=== PATIENT | female | born 1950 | race Caucasian/White ===

== ENCOUNTER → 2020-11-18 | Outpatient (CLI) | payer OTHER, MEDICARE | END | disposition home or self-care (01) | LOC: LABWHC1 10:02 | PROVIDERS: ATTEND Orthopaedic Surgery | DX: Z01.812 Encounter for preprocedural laboratory examination (principal) | CPT/HCPCS: 87070 ==

== ENCOUNTER 2020-11-29 11:21 | Day surgery (SDC) | payer MEDICARE, OTHER ==
[2020-11-24 13:07] VITALS: BMI 32.4
--- NOTE | 2020-11-28 13:09 | HP ---
HISTORY AND PHYSICAL REASON FOR ADMISSION: Surgery scheduled for 11/29/2020. Nasra Joseph is a 70-year-old patient seen with symptomatic left knee osteoarthritis. After treatment options were discussed, she elected to proceed with left total knee arthroplasty. Consent obtained. Medical clearance was provided by Dr. Piter Rosales. PAST MEDICAL HISTORY: Yio-nhiubxe-swzgimmic diabetes. SURGICAL HISTORY: Hysterectomy, total knee arthroplasty. MEDICATIONS: Aspirin, Inderal, metformin, multivitamin. ALLERGIES: NARCOTICS, PENICILLIN. SOCIAL HISTORY: Denies tobacco use. PHYSICAL EXAMINATION: Evaluation of the left knee: Range of motion is -4 to 110. Tenderness along the lateral compartment, lateral joint line area, crepitus, lateral patellofemoral compartment, severe valgus deformity. Distal neurovascular exam intact. RADIOGRAPHS: Left knee radiographs reveal severe osteoarthritic changes involving the lateral compartment with a significant valgus deformity. IMPRESSION: 1. Left knee osteoarthritis. 2. Hypertension. 3. Zmb-[id number]-ssguemwzx diabetes. PLAN: Left total knee arthroplasty. Surgery scheduled for 11/29/2020. MMODL / IJN: [id number] /
[~2020-11-29 11:21] MED LIST: ACETAMINOPHEN TAB 500 MG TAB PO PRN; HYDROmorphone 0.5 MG/0.5 ML SYRINGE IVP PRN; LIDOCAINE 1% (10MG/ML) FOR IV START INTRADERMA PRN; MELOXICAM 7.5 MG TAB PO PRN; ONDANSETRON 4 MG/2 ML VIAL IVP ONE; ROPIVACAINE/EPI/CLONIDINE/KET 50 ML SYRINGE MISCELLANE PRN; TRANEXAMIC ACID 1,000 MG in SODIUM CHLORIDE 0.9% 100 ML IVPB PRN
[2020-11-29] MEDS ORDERED: DEXAMETHASONE SOD PHOSPHATE 4 MG/ML 1 ML VIAL IV ONE (12:05)
[2020-11-29] MEDS: LACTATED RINGERS 1,000 ML IV SCH ×2 (12:05→15:48)
[2020-11-29 12:09] LABS: Glucose,Whole Blood 118 mg/dL (75-99)
[2020-11-29] MEDS ORDERED: MIDAZOLAM 2 MG/2 ML VIAL IV ONE (12:13)
[2020-11-29] MEDS ORDERED: ROPIVACAINE 0.2%-NS ON-Q PUMP 1,090 MG, EMPTY PAIN BALL 1 EACH MISCELLANE PRN (12:34)
--- NOTE | 2020-11-29 12:35 | P.ANPRN ---
Procedure Note - Anesthesia - Nerve Block Performed Left Adductor Canal Infusion Time Out Performed: Yes (1212) Date of Procedure: 11/29/20 Procedure Start Time: 12:13 Procedure Stop Time: 12:20 Location of Patient: PreOp Indication: Acute Post-Operative Pain, Requested by Surgeon Specifically requested for management of pain by DrGerman: Rajiv Gilmore Sedation Type: Sedate with meaningful contact maintained Preparation: Sterile Prep Position: Supine Catheter Depth at Skin (cm): 9 Catheter: Indwelling Needle Types: Pajunk Needle Gauge: 21 Ultrasound used to visualize needle placement: Yes Ultrasound used to observe medication spread: Yes Injectate: 0.5% Ropivacaine (see comment for volume) (20cc) Blood Aspirated: No Pain Paresthesia on Injection Noted: No Resistance on Injection: Normal Image Stored and Saved: Yes Events: Uneventful and Well Tolerated
[2020-11-29] MEDS ORDERED: TRANEXAMIC ACID 1,000 MG/10 ML VIAL ONE (12:51)
[2020-11-29] MEDS ORDERED: ePHEDrine SULFATE/0.9% NACL/PF 50 MG/5 ML SYRINGE IV ONE (12:51)
[2020-11-29] MEDS ORDERED: PROPOFOL 10 MG/ML 20 ML VIAL IV ONE (12:51)
[2020-11-29] MEDS ORDERED: diphenhydrAMINE 50 MG/ML 1 ML VIAL ONE (12:51)
[2020-11-29] MEDS ORDERED: SODIUM CHLORIDE 0.9% 100 ML BAG ONE (12:51)
[2020-11-29] MEDS ORDERED: LIDOCAINE 1% INJ 10MG/ML (20 ML MDV) ONE (12:51)
[2020-11-29] MEDS ORDERED: MIDAZOLAM 2 MG/2 ML VIAL ONE (12:51)
[2020-11-29] MEDS ORDERED: ceFAZolin 3,000 MG in SODIUM CHLORIDE 0.9% IRRIGATIO 3,000 ML IRRIGATION ONE (13:25)
[2020-11-29] MEDS ORDERED: LACTATED RINGERS 1,000 ML IV ONE (14:44)
[2020-11-29] MEDS ORDERED: HYDROmorphone 0.5 MG/0.5 ML SYRINGE IVP PRN (14:57)
[2020-11-29] MEDS ORDERED: ONDANSETRON 4 MG/2 ML VIAL IVP PRN (14:57)
[2020-11-29] MEDS ORDERED: hydrOXYzine pamoate 25 MG CAP PO PRN (14:57)
[2020-11-29] MEDS ORDERED: NALOXONE 0.4 MG/ML 1 ML VIAL IV PRN (14:57)
[2020-11-29] MEDS ORDERED: ACETAMINOPHEN TAB 325 MG TAB PO PRN (14:57)
[2020-11-29] MEDS ORDERED: HYDROmorphone 0.2 MG/1 ML SYRINGE IVP PRN (14:57)
--- NOTE | 2020-11-29 14:57 | P.OP ---
Date of Procedure: 11/29/20 Preoperative Diagnosis: Left knee osteoarthritis with severe fixed valgus deformity Postoperative Diagnosis: Same Procedure(s) Performed: Left total knee arthroplasty Implants: 1. Depuy attune size 6 left cruciate retaining cemented femur 2. Depuy attune knee size 6 cemented revision tibial baseplate with a 14 mm x 50 mm stem 3. Depuy attune size 6 fixed bearing cruciate retaining 12 mm polyethylene tibial insert 4. Depuy attune 41 mm all polyethylene cemented patella Anesthesia: regional (Adductor canal catheter), local, spinal Surgeon: Rajiv Gilmore Intelligence Support Officer #1: Harlan Campo Estimated Blood Loss (ml): 55 Pathology: other (Bone) Condition: stable Disposition: PACU Indications for Procedure: 70-year-old patient seen with severe symptomatic left knee osteoarthritis. We discussed treatment options. She elected to proceed with total knee arthroplasty. Operative Findings: See description of procedure Description of Procedure: Patient was taken to the operative suite after having an adductor canal catheter placed by the department of anesthesia. Patient underwent a spinal anesthetic by the department of anesthesia. Patient was given preoperative IV intake antibiotics and TXA. A well-padded tourniquet was placed about the [] lower extremity. The lower extremity was then prepped and draped in the normal sterile orthopedic fashion. The extremity was elevated, a tourniquet was insufflated to 300. A standard anterior incision was made sharply through skin. Dissection was taken down through the subcutaneous soft tissues down to the extensor mechanism. A medial arthrotomy was performed, patella was everted and knee was flexed. There was a severe fixed valgus deformity present. There was advanced osteoarthritis noted. I performed a meticulous lateral release. I removed large osteophytes over present. I introduced my distal intramedullary femoral drill. I then introduced the distal femoral cutting jig. Herminio CARDONA secured the cutting jig with 2 pins. I held retractors in position while Herminio CARDONA performed the distal femoral resection through the guide area we now removed her distal femoral cutting guide. We now placed our 4-in-1 femoral cutting block and positioned and it was secured with 2 pins by Herminio CARDONA while I held the block in position. The distal femoral finishing was now completed. A proximal tibial cutting guide was positioned. I held the guide in the appropriate position with both hands well Herminio CRADONA inserted stabilizing pins into the guide. Proximal tibial cut was made. We now placed a trial femoral component into position, along with an appropriate size tibial tray and insert. I took these range of motion and noted some residual deformity. I now recut the proximal tibial cut. We now put the trial opponents back in place. We now took the knee through range of motion and had full extension good flexion and good overall soft tissue balance noted. The patella was everted and stabilized with 2 towel clips held by Herminio CARDONA while I performed a flush with patellar quad tendon utilizing a fresh sawblade. We templated the patella, appropriate drill holes were made. An appropriate trial patella was positioned, knee was taken through full range of motion with the patella tracking very nicely. The trial patella was removed. Drill holes were made through the femoral component. All trial components were removed after marking off the appropriate rotation of the tibia. Retractors were now positioned along the proximal tibia. The tibia was fairly soft along its medial side. I decided to proceed with a stemmed component. The drill guide was positioned and drill hole was made for stem. An appropriate keel punch was made with the appropriate size tibial guide by myself on Herminio CARDONA assisted by holding retractors. At this point appropriate size implants were chosen and opened. The joint was irrigated copiously with pulse lavage mechanical irri gation. The posterior capsule was infiltrated with local analgesic. The wound was irrigated with pulse lavage mechanical irrigation. We mixed antibiotic methylmethacrylate. We placed the knee into flexion. We placed multiple retractors assisted by Herminio CARDONA to expose the proximal tibia. Once the methyl methacrylate was ready, the tibial component was cemented into place removing any excess methylmethacrylate form by both myself and Herminio CARDONA. The femoral component was cemented into place removing the removing any excess methylmethacrylate performed by both myself and Herminio CARDONA. We then inserted the appropriate size polyethylene tibial insert. We made sure that it was locked into position. We took the knee into full extension, and then back in a flexion making sure we had removed any excess methylmethacrylate. The patellar component was then cemented down and secured with clamp. Excess methylmethacrylate removed. We kept the knee in full extension, patellar clamp in position until methylmethacrylate had hardened. Once it had hardened the patellar clamp was removed. The knee was taken through full range of motion. The patella tracked nicely. There was good soft tissue balancing. The tourniquet was now released. Additional hemostasis was achieved via electrocautery. A second gram of TXA was given. The wound again was irrigated with pulse lavage mechanical irrigation. The superficial soft tissues were infiltrated local analgesic. The extensor mechanism was repaired with Vicryl. We checked the repair with range of motion and it was stable. The subcutaneous soft tissues were repaired with Vicryl in layers. The skin was approximated with pernio/Dermabond. Sterile dressings were applied followed by loose web roll and Mark bandage. The patient was transferred to a bed, and taken to recovery in stable and satisfactory condition. Herminio CARDONA assisted with this complex procedure.
[2020-11-29 15:49] LABS: Glucose,Whole Blood 139 mg/dL (75-99)
--- NOTE | 2020-11-29 16:04 | XR ---
Left knee HISTORY: Status post left knee arthroplasty 2 views the left knee correlated to plain film 10/12/2020 Patient is post left knee arthroplasty. There is anatomic alignment. Lucency is present in the soft t issues. Bone mineralization is decreased. Surgical sal are present anteriorly. IMPRESSION: Orthopedic follow-up.
[2020-11-29 17:00] LABS: Glucose,Whole Blood 150 mg/dL (75-99)
[2020-11-29 20:23] LABS: Glucose,Whole Blood 272 mg/dL (75-99)
[2020-11-29] MEDS: metFORMIN 500 MG TAB PO SCH (21:49)
--- NOTE | 2020-11-29 23:16 | P.CONS ---
History of Present Illness - Reason for Consult Consult date: 11/29/20 Medical management Requesting physician: Rajiv Gilmore - Chief Complaint Left knee surgery - History of Present Illness Consultation: This is a very pleasant 70-year-old patient of Dr. Piter Rosales. Chronic stable medical conditions include borderline diabetes, osteoporosis and multiple joints, history of pulmonary embolism 15 years ago after a long road trip, patient takes Inderal for migraine prophylaxis, and diverticulosis. Patient has undergone left total knee arthroplasty. Postprocedure pain is controlled. No nausea vomiting. No chest pain. Did tolerate his supper. Resting in bed. Review of systems: GEN.: None EYES: None HEENT: None NECK: None RESPIRATORY: None CARDIOVASCULAR: None GASTROINTESTINAL: None GENITOURINARY: None MUSCULOSKELETAL: Pain in multiple joints LYMPHATICS: None HEMATOLOGICAL: None PSYCHIATRY: None NEUROLOGICAL: None Past medical history to include: Borderline diabetes, osteoarthritis in multiple joints, pulmonary embolism about 15 minutes years ago following a long road trip, patient takes Inderal for migraine prophylaxis, colonic diverticulosis Social history: . No history of smoking or alcohol. . Retired teacher Physical examination: VITAL SIGNS: Afebrile, 73, 18, 129/74, 95% room air GENERAL: BMI 33.9, reclining in bed, comfortable. EYES: Pupils equal. Conjunctiva normal. HEENT: External appearance of nose and ears normal, oral cavity grossly normal. NECK: JVD not raised; masses not palpable. HEART: First and second heart sounds are normal; no edema. LUNGS: Respiratory rate normal; clear to auscultation. ABDOMEN: Soft, nontender, liver spleen not palpable, no masses palpable. PSYCH: Alert and oriented x3; mood and affect normal. MUSCULAR skeletal: Evidence of OA in the hands, dressing over the left knee NEUROLOGICAL: Cranial nerves grossly intact; no facial asymmetry, power and sensation grossly intact. LYMPHATICS: No lymph nodes palpable in the axilla and neck INVESTIGATIONS, reviewed in the clinical context: [id number], 139, 150, 272 Assessment and plan: -Diabetes mellitus type 2, borderline, continue with metformin and follow Accu- Cheks patient last HbA1c was 5.9 -Primary osteoarthritis of multiple joints -Chronic diverticulosis, asymptomatic -Migraines continue with Inderal for prophylaxis -Obesity BMI 33.9. Follow-up with family doctor for weight loss measures. -Post knee arthroplasty prophylaxis. Patient is on Lovenox 30 mg subcu every 12 per the surgeon. Patient getting IV fluids. Received IVs For Infection Prophylaxis. Home Medications Resumed. Care Was Discussed with the Patient. Questions Answered. Thank You Dr. Adames Past Medical History Past Medical History: Diabetes Mellitus, Osteoarthritis (OA), Pulmonary Embolus (PE) Additional Past Medical History / Comment(s): hx Migraines, bethany PE 2001 r/t hormone use, History of Any Multi-Drug Resistant Organisms: None Reported Past Surgical History: Appendectomy, Hysterectomy, Joint Replacement Additional Past Surgical History / Comment(s): Right total knee replacement Past Anesthesia/Blood Transfusion Reactions: Postoperative Nausea & Vomiting (PONV) Past Psychological History: No Psychological Hx Reported Smoking Status: Never smoker Past Alcohol Use History: None Reported Past Drug Use History: None Reported - Past Family History Brother(s) Family Medical History: Cancer Additional Family Medical History / Comment(s): pancreatic Sister(s) Family Medical History: Cancer Additional Family Medical History / Comment(s): breast Medications and Allergies Home Medications Medication Instructions Recorded Confirmed Type Aspirin [Adult Low Dose Aspirin EC] 81 mg PO DAILY 05/07/17 11/29/20 History Magnesium Gluconate [Magonate] 500 mg PO DAILY 05/07/17 11/29/20 History Multivitamins, Thera [Multivitamin 1 tab PO DAILY 05/07/17 11/29/20 History (formulary)] Propranolol HCl [Inderal LA] 160 mg PO QAM 05/07/17 11/29/20 History metFORMIN HCL ER [Glucophage Xr] 500 mg PO PC-SUPPER 05/07/17 11/29/20 History Cholecalciferol [Vitamin D3 (25 50 mcg PO DAILY 11/24/20 11/29/20 History Mcg = 1000 Iu)] Allergies Allergy/AdvReac Type Severity Reaction Status Date / Time danazol [From Danocrine] Allergy Unknown Verified 11/29/20 11:59 hydrocodone [From Vicodin] Allergy Unknown Verified 11/29/20 11:59 latex Allergy Rash/Hives Verified 11/29/20 11:59 niacin Allergy Unknown Verified 11/29/20 11:59 [From Niaspan Extended-Release] Penicillins Allergy Unknown Verified 11/29/20 11:59 narcotic pain meds Allergy sweaty, Uncoded 11/29/20 11:59 clammy Physical Exam Vitals: Vital Signs Temp Pulse Pulse Resp BP BP Pulse Ox 11/29/20 18:50 73 18 129/74 95 11/29/20 18:37 74 18 125/65 96 11/29/20 18:22 75 18 143/69 97 11/29/20 18:06 65 158/86 98 11/29/20 17:51 61 190/83 98 11/29/20 17:36 65 161/90 97 11/29/20 17:21 62 162/97 98 11/29/20 17:07 67 130/61 97 11/29/20 16:15 52 L 16 122/65 95 11/29/20 16:00 53 L 16 122/62 95 11/29/20 15:44 97.7 F 63 18 147/63 98 11/29/20 15:41 55 L 16 126/72 96 11/29/20 15:26 60 16 125/72 95 11/29/20 15:11 98.1 F 66 18 120/66 95 11/29/20 12:22 58 L 16 115/67 100 11/29/20 12:12 63 16 114/57 100 11/29/20 12:03 98.2 F 66 16 153/74 96 Intake and Output 11/29/20 11/29/20 11/30/20 14:59 22:59 06:59 Intake Total 1051 150 Output Total 45 Balance 1006 150 Intake: IV 1051 150 Output: Estimated Blood Loss 45 Other: Voiding Method Toilet # Voids 1 Weight 92.4 kg 92.4 kg Results Labs: Abnormal Lab Results - Last 24 Hours (Table) 11/29/20 11/29/20 11/29/20 Range/Units 12:07 15:48 16:58 POC Glucose (mg/dL) 118 H 139 H 150 H (75-99) mg/dL 11/29/20 Range/Units 20:22 POC Glucose (mg/dL) 272 H (75-99) mg/dL
[2020-11-30] MEDS: traMADol 50 MG TAB PO PRN ×3 (00:27→15:58)
[2020-11-30] MEDS: LACTATED RINGERS 1,000 ML IV SCH ×3 (04:05→07:53)
[2020-11-30 04:40] VITALS: RESP 16
[2020-11-30] MEDS ORDERED: ENOXAPARIN 30 MG/0.3 ML SYRINGE SQ SCH (06:00)
--- NOTE | 2020-11-30 06:41 | P.PN ---
Progress Note - Text Progress Note Date: 11/30/20 Mrs. Joseph is postop day 1 from her left total knee arthroplasty. She is been doing pretty well overnight. She reports her pain is about 90% controlled with the catheter. She has some pain in the posterior knee pain. VAS of 2 out of 10
[2020-11-30 07:15] LABS: Glucose,Whole Blood 129 mg/dL (75-99)
[2020-11-30] MEDS: metFORMIN 500 MG TAB PO SCH (07:50)
[2020-11-30 08:08] VITALS: PULSE 66; TEMP 97.6
[2020-11-30] MEDS ORDERED: MAGNESIUM OXIDE 400 MG TAB PO SCH (09:00)
[2020-11-30] MEDS ORDERED: PROPRANOLOL LA 80 MG CAP.SA.24H PO SCH (09:00)
[2020-11-30] MEDS ORDERED: MELOXICAM 7.5 MG TAB PO SCH (09:00)
[2020-11-30] MEDS ORDERED: CHOLECALCIFEROL 25 MCG (1000 IU) TABLET PO SCH (09:00)
[2020-11-30] MEDS ORDERED: MULTIVITAMINS, THERA 1 EACH TAB PO SCH (09:00)
--- NOTE | 2020-11-30 10:10 | P.PN ---
Subjective Progress Note Date: 11/30/20 Principal diagnosis: Status post left total knee arthroplasty Patient is evaluated at bedside today, she is resting comfortably. Her pain is currently controlled with current medication. She is able to do very well with physical therapy. She has no headaches, lightheadedness, chest pain, shortness of breath, fever chills, nausea vomiting. Objective - Vital Signs Vital signs: Vital Signs Temp 97.6 F 11/30/20 08:00 Pulse 66 11/30/20 08:00 Resp 16 11/30/20 08:30 BP 117/72 11/30/20 08:00 Pulse Ox 98 11/30/20 08:00 Intake & Output 11/29/20 11/30/20 11/30/20 18:59 06:59 18:59 Intake Total 1201 300 Output Total 45 Balance 1156 300 Weight 92.4 kg Intake: IV 1201 Oral 300 Output: Estimated Blood Loss 45 Other: Voiding Method Toilet Toilet # Voids 1 1 - Exam Left lower extremity: Incision is clean, dry, and intact. The foam dressing is in good condition. There is minimal soft tissue swelling and ecchymosis surrounding the medial and lateral aspects of the incision. Calf is soft, no tenderness with palpation. Plantar flexion, dorsiflexion, EHL, FHL are intact. Sensory exam to light touch throughout the extremity is intact, dorsal pedis pulses 2+. - Labs Labs: Abnormal Lab Results - Last 24 Hours (Table) 11/29/20 11/29/20 11/29/20 Range/Units 12:07 15:48 16:58 POC Glucose (mg/dL) 118 H 139 H 150 H (75-99) mg/dL 11/29/20 11/30/20 Range/Units 20:22 07:14 POC Glucose (mg/dL) 272 H 129 H (75-99) mg/dL Assessment and Plan Assessment: Postoperative day 1 status post left total knee arthroplasty Plan: Pain control, plan for discharge on tramadol 50 mg DVT prophylaxis, Eliquis 2.5 mg twice a day for 2 weeks Wound care instructions were discussed, icing and elevating techniques discussed Home physical therapy and nursing after discharge Medical recommendations Plan discharge home today Time with Patient: Less than 30
--- NOTE | 2020-11-30 10:16 | P.DS ---
Providers Date of admission: 11/29/2020 Expected date of discharge: 11/30/20 Attending physician: Rajiv Gilmore Consults: 11/29/20 14:57 Consult Physician Routine Consulting Provider: Horacio Glass Consult Reason/Comments: Medical management Do you want consulting provider notified?: Yes Primary care physician: Piter Bradley Hospital Course: Date of admission: 11/29/2020 Date of discharge: 11/30/2020 Admission diagnosis: Status post left total knee arthroplasty Discharge diagnosis: Same Attending physician: Dr. Gilmore Surgical procedures: Left total knee arthroplasty Brief history: Patient is a 70-year-old female with a history of progressive primary left knee osteoarthritis. At this point patient has failed conservative treatment measures and has opted to proceed with a elective left total knee arthroplasty. Hospital course: Details of patient's surgery can be found in operative report. Patient tolerated the procedure well and was subsequently transported to orthopedic floor. Patient's orthopeidc and medical care was provided daily. Patient had daily laboratory tests performed for evaluation of overall blood counts. Patient had daily physical therapy to include strengthening range of motion as well as education with walker ambulation. Patient was treated with Lovenox for their postoperative DVT prophylaxis during their inpatient stay. Patient was noted to have a relatively uneventful postoperative course. Patient reported satisfactory pain control with oral pain medications by postoperative day 0. Patient showed satisfactory progress with physical therapy. Patient moved steadily through the program and had no difficulty meeting the goals by postoperative day 1. Given patient's otherwise satisfactory course and having met physical therapy goals, plan is to discharge patient home on postoperative day 1. Discharge condition/disposition: Patient will be discharged home in stable condition. Discharge medications: Instructions are given on resumption of patient's normal daily medications per primary care recommendation, in addition patient will be prescribed tramadol 50 mg, Colace milligrams, Eliquis 2.5 mg. Discharge instructions: 1. Wound care and infection precautions, keep incision dry and covered while showering, no lotions, creams, moisturizers. No soaking, tubs, pools, hottubs. Do not scrub over the incision. 2. Weight-bear as tolerated with walker / cane until follow-up. 3. Ice and elevate when necessary. Do not exceed 20 minutes per hour with ice pack. 4. Utilize compression sleeve until seen at first follow up appointment. 5. Visiting nursing care. 6. Home physical therapy including home CPM. 7. Pain meds and anticoagulants per prescription. 8. Pain medication has potential to cause constipation. Increase oral fluid and fiber intake. Contact primary care provider if you have not had a bowel movement within 48 hours after discharge 9. No anti-inflammatory medication until discussed at first post operative visit, this including Motrin, Aleve, Mobic, Diclofenac 10. Follow up in office at 2 weeks postop with Herminio Campo PA-C 11. Follow up with your primary care doctor 7-10 days after discharge. 12. Contact [facility] with any questions, . Procedures: Left total knee arthroplasty Patient Condition at Discharge: Good Plan - Discharge Summary Discharge Rx Participant: No New Discharge Prescriptions: New Docusate [Colace] 100 mg PO DAILY #30 capsule Apixaban [Eliquis] 2.5 mg PO BID #60 tab traMADol HCl [Ultram] 50 mg PO Q6H PRN #28 tab PRN Reason: Pain No Action metFORMIN HCL ER [Glucophage Xr] 500 mg PO PC-SUPPER Aspirin [Adult Low Dose Aspirin EC] 81 mg PO DAILY Propranolol HCl [Inderal LA] 160 mg PO QAM Multivitamins, Thera [Multivitamin (formulary)] 1 tab PO DAILY Magnesium Gluconate [Magonate] 500 mg PO DAILY Cholecalciferol [Vitamin D3 (25 Mcg = 1000 Iu)] 50 mcg PO DAILY Discharge Medication List Aspirin [Adult Low Dose Aspirin EC] 81 mg PO DAILY 05/07/17 [History] Magnesium Gluconate [Magonate] 500 mg PO DAILY 05/07/17 [History] Multivitamins, Thera [Multivitamin (formulary)] 1 tab PO DAILY 05/07/17 [History] Propranolol HCl [Inderal LA] 160 mg PO QAM 05/07/17 [History] metFORMIN HCL ER [Glucophage Xr] 500 mg PO PC-SUPPER 05/07/17 [History] Cholecalciferol [Vitamin D3 (25 Mcg = 1000 Iu)] 50 mcg PO DAILY 11/24/20 [History] Apixaban [Eliquis] 2.5 mg PO BID #60 tab 11/30/20 [Rx] Docusate [Colace] 100 mg PO DAILY #30 capsule 11/30/20 [Rx] traMADol HCl [Ultram] 50 mg PO Q6H PRN #28 tab 11/30/20 [Rx] Follow up Appointment(s)/Referral(s): [facility] [NON-STAFF] - As Needed (Continuous Passive Motion knee machine) [facility], [NON-STAFF] - As Needed Harlan Campo PAC [PHYSICIAN LEATHER COLORER] - 2 Weeks Activity/Diet/Wound Care/Special Instructions: Orthopedic Discharge Instructions: 1. Wound care and infection precautions, keep incision dry and covered while showering, no lotions, creams, moisturizers. No soaking, pools, hot tubs. Do not scrub over incision. 2. Weight-bear as tolerated with walker / cane until follow-up. 3. Ice and elevate when necessary. Do not exceed 20 minutes per hour with ice pack. 4. Utilize compression sleeve until seen at first follow up appointment. 5. Pain meds and anticoagulants per prescription. 6. Pain medication has potential to cause constipation. Increase oral fluid and fiber intake. Contact primary care provider if you have not had a bowel movement within 48 hours after discharge. 7. No anti-inflammatory medication until discussed at first post operative visit, this including Motrin, Aleve, Mobic, Diclofenac. 8. Follow up in office at 2 weeks postop with Herminio Campo PA-C 9. Follow up with your primary care doctor 7-10 days after discharge. 10. Contact [facility] with any questions, . Wound instructions: 1. Okay to remove the foam dressing on 12/06/2020 2. After removal of the dressing, SHOWER directly over the incision Discharge Disposition: HOME WITH HOME HEALTH SERVICES
[2020-11-30 11:38] LABS: Glucose,Whole Blood 113 mg/dL (75-99)
[2020-11-30 12:03] LABS: Basophils # (A) 0.02 X 10*3/uL (0.00-0.10); Basophils % (A) 0.2 %; Eosinophils # (A) 0 X 10*3/uL (0.04-0.35); Eosinophils % (A) 0 %; HCT 25.4 % (37.2-46.3); HGB 7.5 g/dL (12.0-15.0); Lymphocytes # (A) 1.47 X 10*3/uL (0.90-5.00); Lymphocytes % (A) 12.6 %; MCH 22.3 pg (27.0-32.0); MCHC 29.5 g/dL (32.0-37.0); MCV 75.4 fL (80.0-97.0); Mean Platelet Volume 10.7 fL (9.5-12.2); Monocytes # (A) 1.28 X 10*3/uL (0.20-1.00); Monocytes % (A) 10.9 %; Neutrophils # (A) 8.91 X 10*3/uL (1.80-7.70); Platelet Count 438 X 10*3/uL (140-440); RBC 3.37 X 10*6/uL (4.10-5.20); RDW 17.8 % (11.5-14.5); WBC 11.71 X 10*3/uL (4.50-10.00)
[2020-11-30] MEDS ORDERED: LACTATED RINGERS 1,000 ML IV SCH (12:45)
[2020-11-30 16:34] VITALS: BP 101/63
== END 2020-11-30 17:24 | disposition home health service (06) ==
LOC: OR 11:21 → 4SSUR 15:38 → OR 11-30 17:24
PROVIDERS: ATTEND Orthopaedic Surgery
DX: M17.12 Unilateral primary osteoarthritis, left knee (principal); E11.9 Type 2 diabetes mellitus without complications; I10 Essential (primary) hypertension; K57.90 Diverticulosis of intestine, part unspecified, without perforation or abscess without bleeding; G43.909 Migraine, unspecified, not intractable, without status migrainosus; E66.9 Obesity, unspecified; Z90.710 Acquired absence of both cervix and uterus; Z79.82 Long term (current) use of aspirin; Z79.84 Long term (current) use of oral hypoglycemic drugs; Z79.899 Other long term (current) drug therapy; Z88.0 Allergy status to penicillin; Z88.5 Allergy status to narcotic agent; Z68.33 Body mass index [BMI] 33.0-33.9, adult; Z86.711 Personal history of pulmonary embolism; Z96.651 Presence of right artificial knee joint; Z80.0 Family history of malignant neoplasm of digestive organs; Z80.3 Family history of malignant neoplasm of breast; Z91.040 Latex allergy status; Z88.1 Allergy status to other antibiotic agents; Z88.8 Allergy status to other drugs, medicaments and biological substances
CPT/HCPCS: 97110; 97161; 64448; 76942; 85025; 73560; 27447; C1776; C1713; J2250; J1100; J0690 ×3; J2405; J1650; J2795; 88300

== ENCOUNTER 2022-08-10 09:56 | Emergency (ER) | payer MEDICARE, OTHER ==
[2022-08-10 10:07] VITALS: BP 175/84; PULSE 61; RESP 14; TEMP 97.7
[2022-08-10 10:40] LABS: Basophils # (A) 0.1 k/uL (0-0.2); Basophils % (A) 0 %; Eosinophils # (A) 0.1 k/uL (0-0.7); Eosinophils % (A) 1 %; HCT 38.3 % (34.0-46.0); HGB 12.5 gm/dL (11.4-16.0); Lymphocytes # (A) 0.9 k/uL (1.0-4.8); Lymphocytes % (A) 8 %; MCH 28.8 pg (25.0-35.0); MCHC 32.6 g/dL (31.0-37.0); MCV 88.3 fL (80.0-100.0); Monocytes # (A) 0.3 k/uL (0-1.0); Monocytes % (A) 3 %; Neutrophils # (A) 9.3 k/uL (1.3-7.7); Neutrophils % (A) 87 %; Platelet Count 383 k/uL (150-450); RBC 4.34 m/uL (3.80-5.40); RDW 13.7 % (11.5-15.5); WBC 10.7 k/uL (3.8-10.6)
[2022-08-10] MEDS ORDERED: SODIUM CHLORIDE 0.9% 1,000 ML IV STA (10:58)
[2022-08-10] MEDS ORDERED: KETOROLAC 15 MG/ML 1 ML VIAL IVP STA (10:58)
--- NOTE | 2022-08-10 11:00 | ED ---
General Adult HPI - General Chief complaint: Back Pain/Injury Stated complaint: Abd Pain Time Seen by Provider: 08/10/22 10:49 Source: patient, RN notes reviewed Mode of arrival: ambulatory - History of Present Illness Initial comments: Patient is a 71-year-old female presenting to the emergency room with complaints of right flank pain ongoing for approximately 3 days which is now increased in intensity and radiating towards the right upper quadrant. She also complains of occasional episodes of nausea without vomiting. She denies any chest pain, shortness of breath, abdominal pain not related to flank radiation, constipation, diarrhea, urinary frequency, dysuria, hematuria, fevers or chills. She does have a past medical history significant for diabetes, migraines, arthritis along with kidney and gallstones. She reports that she has not had any gallstone or kidney stone exacerbations in several years. - Related Data Home Medications Medication Instructions Recorded Confirmed Aspirin [Adult Low Dose Aspirin EC] 81 mg PO DAILY 05/07/17 11/29/20 Magnesium Gluconate [Magonate] 500 mg PO DAILY 05/07/17 11/29/20 Multivitamins, Thera [Multivitamin 1 tab PO DAILY 05/07/17 11/29/20 (formulary)] Propranolol HCl [Inderal LA] 160 mg PO QAM 05/07/17 11/29/20 metFORMIN HCL ER [Glucophage Xr] 500 mg PO PC-SUPPER 05/07/17 11/29/20 Cholecalciferol [Vitamin D3 (25 50 mcg PO DAILY 11/24/20 11/29/20 Mcg = 1000 Iu)] Previous Rx's Medication Instructions Recorded Apixaban [Eliquis] 2.5 mg PO BID #60 tab 11/30/20 Docusate [Colace] 100 mg PO DAILY #30 capsule 11/30/20 traMADol HCl [Ultram] 50 mg PO Q6H PRN #28 tab 11/30/20 Allergies Allergy/AdvReac Type Severity Reaction Status Date / Time danazol [From Danocrine] Allergy Unknown Verified 08/10/22 10:07 hydrocodone [From Vicodin] Allergy Unknown Verified 08/10/22 10:07 latex Allergy Rash/Hives Verified 08/10/22 10:07 niacin Allergy Unknown Verified 08/10/22 10:07 [From Niaspan Extended-Release] Penicillins Allergy Unknown Verified 08/10/22 10:07 narcotic pain meds Allergy sweaty, Uncoded 08/10/22 10:07 clammy Review of Systems ROS Statement: Those systems with pertinent positive or pertinent negative responses have been documented in the HPI. ROS Other: All systems not noted in ROS Statement are negative. Past Medical History Past Medical History: Diabetes Mellitus, Osteoarthritis (OA) Additional Past Medical History / Comment(s): kidney stones; Migraines History of Any Multi-Drug Resistant Organisms: None Reported Past Surgical History: Appendectomy, Hysterectomy, Joint Replacement Additional Past Surgical History / Comment(s): Right&Left total knee replacement Past Anesthesia/Blood Transfusion Reactions: No Reported Reaction Past Psychological History: No Psychological Hx Reported Smoking Status: Never smoker Past Alcohol Use History: None Reported Past Drug Use History: None Reported General Exam General appearance: alert, in no apparent distress Head exam: Present: atraumatic, normocephalic, normal inspection Eye exam: Present: normal appearance, PERRL, EOMI. Absent: scleral icterus, conjunctival injection, periorbital swelling ENT exam: Present: normal exam, mucous membranes moist Neck exam: Present: normal inspection, full ROM Respiratory exam: Present: normal lung sounds bilaterally. Absent: respiratory distress, wheezes, rales, rhonchi, stridor Cardiovascular Exam: Present: regular rate, normal rhythm, normal heart sounds. Absent: systolic murmur, diastolic murmur, rubs, gallop, clicks GI/Abdominal exam: Present: soft, normal bowel sounds. Absent: distended, tenderness, guarding, rebound, rigid Extremities exam: Present: normal inspection. Absent: pedal edema, joint swelling Back exam: Present: normal inspection, full ROM, CVA tenderness (R). Absent: CVA tenderness (L) Neurological exam: Present: alert, oriented X3, CN II-XII intact Psychiatric exam: Present: normal affect, normal mood Skin exam: Present: warm, dry, intact, normal color. Absent: rash Course Vital Signs 08/10/22 10:05 Temperature 97.7 F Pulse Rate 61 Respiratory 14 Rate Blood Pressure 175/84 O2 Sat by Pulse 99 Oximetry Medical Decision Making - Medical Decision Making 71-year-old female presenting to the emergency room with complaints of right-sided flank pain increasing in intensity radiating to the upper quadrant with known kidney and call stone history. Will obtain CT of the abdomen and pelvis without contrast along with CBC, CMP, amylase, lipase and urinalysis. Will give dose of Keppra lack along with IV fluid bolus of 1 L. CBC shows mild leukocytosis with WBC 10.7. CMP reveals mild dehydration with BUN of 19, creatinine 0.64 slightly elevated glucose 165. Liver enzymes amylase and lipase all normal. Urinalysis negative for bacteria or nitrates. Large blood noted consistent with nephrolithiasis. CT the abdomen image read by me showing renal stone of the right ureter and no evidence of gallstones. Pain improved with IV hydration and anti-inflammatory. No indication for further diagnostic imaging or laboratory studies. Will discharge patient home in stable condition with follow-up with her primary care provider continuation of anti-inflammatories as needed along with good oral hydration. Case discussed with Dr. Carpenter. - Lab Data Result diagrams: 08/10/22 10:32 08/10/22 10:32 Lab Results 08/10/22 08/10/22 08/10/22 Range/Units 10:32 10:32 10:32 WBC 10.7 H (3.8-10.6) k/uL RBC 4.34 (3.80-5.40) m/uL Hgb 12.5 (11.4-16.0) gm/dL Hct 38.3 (34.0-46.0) % MCV 88.3 (80.0-100.0) fL MCH 28.8 (25.0-35.0) pg MCHC 32.6 (31.0-37.0) g/dL RDW 13.7 (11.5-15.5) % Plt Count 383 (150-450) k/uL MPV 8.0 Neutrophils % 87 % Lymphocytes % 8 % Monocytes % 3 % Eosinophils % 1 % Basophils % 0 % Neutrophils # 9.3 H (1.3-7.7) k/uL Lymphocytes # 0.9 L (1.0-4.8) k/uL Monocytes # 0.3 (0-1.0) k/uL Eosinophils # 0.1 (0-0.7) k/uL Basophils # 0.1 (0-0.2) k/uL Sodium 139 (137-145) mmol/L Potassium 4.5 (3.5-5.1) mmol/L Chloride 103 (98-107) mmol/L Carbon Dioxide 26 (22-30) mmol/L Anion Gap 10 mmol/L BUN 19 H (7-17) mg/dL Creatinine 0.64 (0.52-1.04) mg/dL Est GFR (CKD-EPI)AfAm >90 (>60 ml/min/1.73 sqM) Est GFR (CKD-EPI)NonAf 89 (>60 ml/min/1.73 sqM) Glucose 165 H (74-99) mg/dL Calcium 9.4 (8.4-10.2) mg/dL Total Bilirubin 0.8 (0.2-1.3) mg/dL AST 25 (14-36) U/L ALT 17 (4-34) U/L Alkaline Phosphatase 82 (38-126) U/L Total Protein 7.1 (6.3-8.2) g/dL Albumin 4.7 (3.5-5.0) g/dL Amylase 52 (30-110) U/L Lipase 44 (23-300) U/L Urine Color Urine Appearance (Clear) Urine pH (5.0-8.0) Ur Specific Fossil (1.001-1.035) Urine Protein (Negative) Urine Glucose (UA) (Negative) Urine Ketones (Negative) Urine Blood (Negative) Urine Nitrite (Negative) Urine Bilirubin (Negative) Urine Urobilinogen (<2.0) mg/dL Ur Leukocyte Esterase (Negative) Urine RBC (0-5) /hpf Urine WBC (0-5) /hpf Ur Squamous Epith Cells (0-4) /hpf Urine Mucus (None) /hpf 08/10/22 Range/Units 12:22 WBC (3.8-10.6) k/uL RBC (3.80-5.40) m/uL Hgb (11.4-16.0) gm/dL Hct (34.0-46.0) % MCV (80.0-100.0) fL MCH (25.0-35.0) pg MCHC (31.0-37.0) g/dL RDW (11.5-15.5) % Plt Count (150-450) k/uL MPV Neutrophils % % Lymphocytes % % Monocytes % % Eosinophils % % Basophils % % Neutrophils # (1.3-7.7) k/uL Lymphocytes # (1.0-4.8) k/uL Monocytes # (0-1.0) k/uL Eosinophils # (0-0.7) k/uL Basophils # (0-0.2) k/uL Sodium (137-145) mmol/L Potassium (3.5-5.1) mmol/L Chloride (98-107) mmol/L Carbon Dioxide (22-30) mmol/L Anion Gap mmol/L BUN (7-17) mg/dL Creatinine (0.52-1.04) mg/dL Est GFR (CKD-EPI)AfAm (>60 ml/min/1.73 sqM) Est GFR (CKD-EPI)NonAf (>60 ml/min/1.73 sqM) Glucose (74-99) mg/dL Calcium (8.4-10.2) mg/dL Total Bilirubin (0.2-1.3) mg/dL AST (14-36) U/L ALT (4-34) U/L Alkaline Phosphatase (38-126) U/L Total Protein (6.3-8.2) g/dL Albumin (3.5-5.0) g/dL Amylase (30-110) U/L Lipase (23-300) U/L Urine Color Light Yellow Urine Appearance Clear (Clear) Urine pH 7.5 (5.0-8.0) Ur Specific Fossil 1.009 (1.001-1.035) Urine Protein Negative (Negative) Urine Glucose (UA) Negative (Negative) Urine Ketones Negative (Negative) Urine Blood Large H (Negative) Urine Nitrite Negative (Negative) Urine Bilirubin Negative (Negative) Urine Urobilinogen <2.0 (<2.0) mg/dL Ur Leukocyte Esterase Trace H (Negative) Urine RBC 41 H (0-5) /hpf Urine WBC 1 (0-5) /hpf Ur Squamous Epith Cells <1 (0-4) /hpf Urine Mucus Rare H (None) /hpf - Radiology Data Radiology results: report reviewed, image reviewed CT the abdomen and pelvis without contrast impression: 1. He punctuated 3 mm stone at the distal right UVJ with mild obstructive uropathy. 2 large hilar hernia involving two thirds of the stomach and lower chest. 3 generalized colonic diverticulosis without diverticulitis. Underlying peripelvic cyst in the left kidney measuring up to 2.1 cm. 4. Mild hypertrophic gallbladder probably due to fasting status. Disposition Clinical Impression: Calculus of kidney Disposition: HOME SELF-CARE Condition: Stable Instructions (If sedation given, give patient instructions): Kidney Stones (ED) Additional Instructions: Please continue to stay well hydrated drinking plenty of water avoiding caffeinated products. Utilize ibuprofen [id number] for inflammation reduction and pain control. Follow-up with your primary care provider. Please return to the Emergency Department if symptoms worsen or any other concerns. Is patient prescribed a controlled substance at d/c from ED?: No Referrals: Nonstaff,Physician [REFERRING] - 1-2 days Time of Disposition: 13:31
[2022-08-10 11:07] LABS: ALT 17 U/L (4-34); AST 25 U/L (14-36); African American GFR (CKD) >90 (>60 ml/min/1.73 sqM); Albumin 4.7 g/dL (3.5-5.0); Alkaline Phosphatase 82 U/L (38-126); Anion Gap 10 mmol/L; Blood Urea Nitrogen 19 mg/dL (7-17); Calcium 9.4 mg/dL (8.4-10.2); Carbon Dioxide 26 mmol/L (22-30); Chloride 103 mmol/L (98-107); Glucose 165 mg/dL (74-99); Non-African American GFR(CKD) 89 (>60 ml/min/1.73 sqM); Potassium 4.5 mmol/L (3.5-5.1); Sodium 139 mmol/L (137-145); Total Bilirubin 0.8 mg/dL (0.2-1.3); Total Protein 7.1 g/dL (6.3-8.2)
[2022-08-10 12:21] LABS: Amylase 52 U/L (30-110); Lipase 44 U/L (23-300)
--- NOTE | 2022-08-10 12:45 | CT ---
EXAMINATION TYPE: CT abdomen pelvis wo con DATE OF EXAM: 08/10/2022 COMPARISON: None HISTORY: 71-year-old female Rt sided pain, history of renal stones and known gallstones CT DLP: 845.2 mGycm. Automated exposure control for dose reduction was used. TECHNIQUE: Contiguous axial scanning of the abdomen and pelvis without IV contrast. Coronal and sagit pete reconstructions performed. FINDINGS: Heart border line enlarged. Large hiatal hernia involving two thirds of the stomach in the lower ches t. Strandy atelectasis in the lower lungs. No pleural effusion. Ectatic aorta at the thoracoabdominal junction measuring 2.7 cm. Noncontrast appearance of the liver, adrenal glands, spleen, and pancreas show no gross abnormality. Gallbladder is borderline to mildly hydropic measuring 4.2 cm wide on coronal series. No surrounding inflammation. Left kidney suspected to have parapelvic cysts measuring up to 2.1 cm. No nephrolithiasis on either s wilber. However, there is mild right-sided hydronephrosis with a punctate 3 mm calculus at the distal ri ght ureter just prior to the UVJ, axial image 120. No dilated small bowel, free fluid, or free air. No mesenteric or retroperitoneal lymphadenopathy. Generalized colonic diverticulosis. No pericolonic inflammatory change. Bladder is urine distended. Numerous pelvic phleboliths. Uterus surgically absent. Both ovaries are v isualized. No abnormal fluid collection the pelvis or pelvic lymphadenopathy. Bones: Moderate degenerative change right hip. Advanced degenerative change throughout the lumbar spi ne. Degenerative grade 1 spondylolisthesis L1-L4 levels. Baastrup's disease. Possible mild to moderat e spinal canal narrowing L4-L5. Possible severe right neuroforaminal stenosis at L4-L5. IMPRESSION: 1. A punctate 3 mm stone at the distal right UVJ with mild obstructive uropathy. 2. Large hiatal hernia involving two thirds of the stomach in the lower chest. 3. Generalized colonic diverticulosis. Suspect some underlying parapelvic cysts in the left kidney m easuring up to 2.1 cm. 4. Mildly hydropic gallbladder probably due to fasting state. Clinically correlate.
[2022-08-10 12:48] LABS: Appearance,Urine Clear (Clear); Bilirubin,Urine Negative (Negative); Blood,Urine Large (Negative); Color,Urine Light Yellow; Glucose,Urine (UA) Negative (Negative); Ketones,Urine Negative (Negative); Leukocyte Esterase,Urine Trace (Negative); Mucus,Urine Rare /hpf; Nitrite,Urine Negative (Negative); PH, Urine 7.5 (5.0-8.0); Protein,Urine Negative (Negative); RBC,Urine 41 /hpf (0-5); Specific Gravity,Urine 1.009 (1.001-1.035); Squamous Epithelial Cell,Urine <1 /hpf (0-4); Urobilinogen,Urine <2.0 mg/dL (<2.0); WBC,Urine 1 /hpf (0-5)
== END 2022-08-10 14:08 | disposition home or self-care (01) ==
LOC: EC 09:56
DX: N20.0 Calculus of kidney (principal); E11.9 Type 2 diabetes mellitus without complications; M19.90 Unspecified osteoarthritis, unspecified site; Z88.8 Allergy status to other drugs, medicaments and biological substances; Z91.040 Latex allergy status; Z88.0 Allergy status to penicillin; Z79.82 Long term (current) use of aspirin; Z79.84 Long term (current) use of oral hypoglycemic drugs; Z79.899 Other long term (current) drug therapy
CPT/HCPCS: 36415; 80053; 82150; 83690; 85025; 81001; 74176; 99284; 96374; 96361; J1885

== ENCOUNTER → 2023-12-18 | Outpatient (CLI) | payer MEDICARE ==
--- NOTE | 2023-12-18 14:53 | MM ---
Reason for Exam: Screening (asymptomatic). Last mammogram was performed 1 year(s) and 1 month(s) ago. Patient History: Menarche at age 8. First Full-Term at age 25. Hysterectomy at age 33. Postmenopausal. Paternal grandmother had breast cancer, age 50. Sister had breast cancer, age 63. Risk Values: Yoli 5 year model risk: 3.8%. NCI Lifetime model risk: 8.1%. Prior Study Comparison: 09/28/2020 Screening Mammogram, [facility]. 11/24/2021 Bilateral Screening Mammogram, [facility]. 11/28/2022 Bilateral MG 3D screening mammo w/cad, [facility]. Tissue Density: The breasts are almost entirely fatty. Findings: Analyzed By CAD. There is no suspicious group of microcalcifications or new suspicious mass. Overall Assessment: Negative, BI-RAD 1 Management: Screening Mammogram of both breasts in [address] [facility] will attempt to contact patient to return for supplemental views and ultrasound if indicated. Patient should continue monthly self-breast exams. A clinical breast exam by your physician is recommended on an annual basis. This exam should not preclude additional follow-up of suspicious palpable abnormalities. Note on Yoli scores and lifetime risk: 1. A Yoli score greater than 3% is considered moderate risk. If this is the case, consider specialist referral to assess eligibility for a risk reducing agent. 2. If overall lifetime risk for the development of breast cancer is 20% or higher, the patient may qualify for future screening with alternating mammogram and breast MRI. Electronically signed and approved by: Dmitry Cantor DO
== END | disposition home or self-care (01) ==
LOC: RADMAMWWP 09:26
PROVIDERS: ATTEND Family Medicine
DX: Z12.31 Encounter for screening mammogram for malignant neoplasm of breast (principal); Z78.0 Asymptomatic menopausal state; Z80.3 Family history of malignant neoplasm of breast
CPT/HCPCS: 77063; 77067

== ENCOUNTER → 2025-01-29 | Outpatient (CLI) | payer MEDICARE ==
--- NOTE | 2025-01-29 09:58 | MM ---
Reason for Exam: Screening (asymptomatic). Last mammogram was performed 1 year(s) and 1 month(s) ago. Patient History: Menarche at age 8. First Full-Term at age 25. Hysterectomy at age 33. Postmenopausal. Paternal grandmother had breast cancer, age 50. Sister had breast cancer, age 63. Risk Values: Yoli 5 year model risk: 3.8%. NCI Lifetime model risk: 7.6%. Prior Study Comparison: 11/24/2021 Bilateral Screening Mammogram, [facility]. 11/28/2022 Bilateral MG 3D screening mammo w/cad, [facility]. 12/18/2023 Bilateral MG 3D screening mammo w/cad, [facility]. Tissue Density: There are scattered areas of fibroglandular density. Findings: Analyzed By CAD. There is no suspicious group of microcalcifications or new suspicious mass in either breast. Overall Assessment: Benign, BI-RAD 2 Management: Screening Mammogram of both breasts in 1 year. . Patient should continue monthly self-breast exams. A clinical breast exam by your physician is recommended on an annual basis. This exam should not preclude additional follow-up of suspicious palpable abnormalities. Note on Yoli scores and lifetime risk: 1. A Yoli score greater than 3% is considered moderate risk. If this is the case, consider specialist referral to assess eligibility for a risk reducing agent. 2. If overall lifetime risk for the development of breast cancer is 20% or higher, the patient may qualify for future screening with alternating mammogram and breast MRI. [facility], , 01/29/2025 9:52 AM. Electronically signed and approved by: Sylvain Collins M.D. Radiologis
== END | disposition home or self-care (01) ==
LOC: RADMAMWWP 09:06
PROVIDERS: ATTEND Family Medicine
DX: Z12.31 Encounter for screening mammogram for malignant neoplasm of breast (principal); R92.323 Mammographic fibroglandular density, bilateral breasts; Z78.0 Asymptomatic menopausal state; Z80.3 Family history of malignant neoplasm of breast
CPT/HCPCS: 77063; 77067